=== PATIENT | male | born 1955 | race Caucasian/White ===

== ENCOUNTER 2019-06-08 18:24 | Inpatient (IN) ==
[2019-06-08] MEDS ORDERED: ASPIRIN 81 MG CHEW PO STA (18:39)
[2019-06-08] MEDS ORDERED: SODIUM CHLORIDE 0.9% 1000ML 1,000 ML IV ONE ×2 (18:41→19:48)
[2019-06-08] MEDS ORDERED: fentaNYL citrate 100 MCG/2 ML VIAL IV STA (18:41)
--- NOTE | 2019-06-08 18:51 | XRay Report ---
XR chest 1V portable CLINICAL HISTORY: epigatric pain pain COMPARISON STUDY: 09/16/2015 FINDINGS: Poor inspiratory volumes. Mild cardiac enlargement. Infiltrate left base. Lungs otherwise a ppear clear. IMPRESSION: 1. Infiltrate left base. 2. Mild cardiomegaly. The above report was generated using voice recognition software. It may contain grammatical, syntax or spelling errors. Electronically signed by: Hugh Silva M.D. 06/08/2019 6:49 PM
[2019-06-08 18:53] LABS: Basophils # (auto) 0.03 K/uL (0-0.2); Basophils % (auto) 0.4 %; Eosinophils # (auto) 0.41 K/uL (0-0.5); Eosinophils % (auto) 4.8 %; Hematocrit (blood only) 44.6 % (42-52); Hemoglobin 15.5 g/dL (14.0-18.0); Immature Granulocytes # (auto) 0.01 K/uL (0.00-0.02); Immature Granulocytes % (auto) 0.1 %; Lymphocytes # (auto) 2.17 K/uL (1.2-3.4); Lymphocytes % (auto) 25.6 %; Mean Corpuscular Hemoglobin 30.2 pg (25-34); Mean Corpuscular Hgb Conc 34.8 g/dL (32-36); Mean Corpuscular Volume 86.9 fL (80-100); Mean Platelet Volume 9.9 fL (7.4-10.4); Monocytes # (auto) 1.02 K/uL (0.11-0.59); Neutrophils # (auto) 4.85 K/uL (1.4-6.5); Neutrophils % (auto) 57.1 %; Platelet Count 249 K/uL (130-400); RDW Coefficient of Variation 13.7 % (11.5-14.5); RDW Standard Deviation 43.3 fL (36.4-46.3); Red Blood Count 5.13 M/uL (4.7-6.1); White Blood Count 8.49 K/uL (4.8-10.8)
[2019-06-08] MEDS ORDERED: OPTIRAY 320 125ml IV PRN (18:54)
[2019-06-08 18:57] LABS: iSTAT Creatinine 1.1 mg/dl (0.6-1.3); iSTAT Hemoglobin 15.3 g/dl (14.0-18.0); iSTAT Ionized Calcium 1.18 mmol/l (1.12-1.32); iSTAT Potassium 2.7 mEq/L (3.3-5.0)
[2019-06-08 19:03] LABS: INR 1.1 (0.9-1.1); Partial Thromboplastin Ratio 0.8; Partial Thromboplastin Time 20.4 Seconds (21.0-31.0); Prothrombin Time 10.9 Seconds (9.0-12.0)
--- NOTE | 2019-06-08 19:11 | CT Scan Report ---
CT angio chest dissec wo/w con CT DOSE: 3294.83 mGy.cm HISTORY: Pain epigastric pain TECHNIQUE: Multiaxial CT images of the chest, abdomen, and pelvis were performed both before and afte r the intravenous administration of contrast to evaluate the aorta. Maximal intensity projection imag es were also obtained. A dose lowering technique was utilized adhering to the principles of ALARA. COMPARISON STUDY: None. FINDINGS: Generalized atherosclerotic change of the thoracic aorta. No evidence for aneurysm or disse ction. Moderate cardiomegaly. No significant mediastinal or hilar adenopathy. Lungs are generally clear. Minimal dependent atelectatic change. IMPRESSION: 1. No evidence for aneurysm or dissection. 2. Lungs are grossly clear. 3. Pulmonary vasculature enhances appropriately with no significant filling defects. The above report was generated using voice recognition software. It may contain grammatical, syntax or spelling errors. Electronically signed by: Hugh Silva M.D. 06/08/2019 7:09 PM
[2019-06-08 19:13] LABS: Alanine Aminotransferase 468 U/L (12-78); Albumin Level 4.1 gm/dl (3.4-5.0); Aspartate Aminotransferase 380 U/L (15-37); BUN Creatinine Ratio 11.6 (10-20); Blood Urea Nitrogen 13 mg/dl (7-18); Calcium 9.8 mg/dl (8.5-10.1); Carbon Dioxide 30 mmol/L (21-32); Chloride 103 mmol/L (98-107); Est GFR (African American) 77.5; Est GFR (Non-African American) 66.9; Glucose 114 mg/dl (70-99); Potassium 2.7 mmol/L (3.5-5.1); Sodium 140 mmol/L (136-145)
--- NOTE | 2019-06-08 19:15 | CT Scan Report ---
Study: CT angiogram abdomen and pelvis HISTORY: Pain. COMPARISON: None. FINDINGS: Moderate atherosclerotic change of the abdominal aorta as well as pelvic arterial vasculatu re. Mild scattered plaque formation. No significant stenosis or aneurysm. No evidence for dissection. Liver spleen and pancreas are unremarkable. Nonobstructive bowel pattern. Normal appendix. Bladder is midline. IMPRESSION: 1. Mild atherosclerotic change of the abdominal and pelvic arterial vasculature. 2. No evidence for aneurysm or dissection. 3. Nonobstructive bowel pattern. 4. Normal appendix. 5. Mild to moderate gastric distention Electronically signed by: Hugh Silva M.D. 06/08/2019 7:13 PM
[2019-06-08 19:36] LABS: Albumin Globulin Ratio 1.2 (0.9-2); Alkaline Phosphatase 161 U/L (45-117); Bilirubin,Total 1.6 mg/dl (0.2-1); Globulin 3.3 gm/dl (2.5-4.0); Lipase 27935 U/L (73-393); Total Protein 7.4 gm/dl (6.4-8.2); Troponin I < 0.015 ng/ml (0-0.045)
[2019-06-08] MEDS ORDERED: POTASSIUM CHLORIDE / WTR 10 MEQ/100 ML PLCT IV ONE (19:48)
[2019-06-08] MEDS ORDERED: POTASSIUM CHLORIDE 20 MEQ TABCR PO STA (21:20)
[2019-06-08] MEDS ORDERED: ACETAMINOPHEN 325 MG TAB PO PRN (21:20)
[2019-06-08] MEDS ORDERED: ONDANSETRON INJ 2 MG/ML 2 ML VIAL IV PRN (21:20)
[2019-06-08] MEDS ORDERED: HYDROmorphone INJ 0.5 MG/0.5 ML SYR IV PRN (21:20)
[2019-06-08] MEDS: POTASSIUM CHLORIDE / WTR 10 MEQ/100 ML PLCT IV SCH ×2 (21:55→22:54)
--- NOTE | 2019-06-08 22:15 | Emergency Department Note ---
Entered by Roopa Garcia acting as a scribe for Ermias Mcmahan M.D. History of Present Illness General Chief complaint: Abdominal Pain Stated complaint: STOMACH PAINS,SWEATING Time Seen by Provider: 06/08/19 18:31 Source: patient History of Present Illness Onset (ago): day(s) 4 Location: abdomen (upper) Pain Consistency: + intermittent (for the past few days) and + other (worsened today) Maximum Pain Intensity: 7 Quality: + sharp and + other (upper abdominal pain) Exacerbated By: + eating and + other (inspiration) Associated symptoms: + other (Positive diaphoresis. 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 He reports on Thanksgiving, he had some upper abdominal discomfort, burping, and diaphoresis but thought it was from eating too much food. He states for the past few days, his pain has been intermittent and sharp but it worsened today. His pain is worse with inspiration and eating. He denies any nausea, vomiting, fevers, diarrhea, radiation of his pain, recent falls, recent travel. The patient has no prior hx of heart burn or acid reflux. He does not have a family hx of gall bladder or heart problems. His PCP is Dr. Beard, Family Medicine. Home Medications Home Medications Medication Instructions Recorded Confirmed Type atorvastatin 40 mg PO DAILY 06/08/19 06/08/19 History benazepril-hydrochlorothiazide 1 tab PO DAILY 06/08/19 06/08/19 History metoprolol succinate 100 mg PO DAILY 06/08/19 06/08/19 History Allergies Allergy/AdvReac Type Severity Reaction Status Date / Time naproxen Allergy Loss of Verified 06/08/19 21:44 Appetite Past Med/Surg History Medical History Pneumonia involving right lung (Acute) Surgical History No pertinent past surgical history Family History Other No pertinent family history in first degree relatives Social History Preferred Language: Kazakh Communication Ability: Effective Beliefs That Will Affect Care: None Current Living Situation: Spouse Other Information That Helps Us Care for You: No Feels Safe at Home: Yes Safety Concerns: Feels Safe At This Time Smoking Status: Never smoker Do You Dip or Chew Tobacco: No ; Hx Alcohol Use: Yes Alcohol type: beer Hx Substance Use: No Review of Systems See HPI for pertinent positives & negatives. and A total of 10 systems reviewed and were otherwise negative Physical Exam Vital Signs Vital Signs - 24 hr 06/08/19 18:26 06/08/19 18:34 06/08/19 19:04 Pulse Rate 58 L 61 Pulse Rate from SpO2 Sensor 62 Respiratory Rate 20 15 Respiratory Effort / Characteristics Non-Labored Respiratory Depth Normal Blood Pressure 96/57 L 107/75 129/75 Blood Pressure Mean 70 80 100 Pulse Oximetry 93 97 Oxygen Delivery Method Room Air Room Air Sepsis Recent Fever Within 48 Hours No Sepsis Action Taken by Nursing No Action Required 06/08/19 19:50 06/08/19 20:12 06/08/19 20:13 Pulse Rate 77 65 70 Pulse Rate from SpO2 Sensor 71 66 71 Respiratory Rate 22 24 17 Respiratory Effort / Characteristics Respiratory Depth Blood Pressure 128/67 115/65 Blood Pressure Mean 92 75 Pulse Oximetry 93 96 95 Oxygen Delivery Method Sepsis Recent Fever Within 48 Hours Sepsis Action Taken by Nursing GENERAL: Awake, alert, uncomfortable-appearing, in no distress. Diaphoretic and pale. HENT: Normocephalic, atraumatic. EYES: Normal conjunctiva. Sclera non-icteric. NECK: Supple. No nuchal rigidity. RESPIRATORY: Clear to auscultation. Normal respiratory effort. CARDIAC: Normal rate. Normal rhythm. Pale. GI: Soft, non-distended. No rebound or guarding. No masses. Minimal to no epigastric pain. Negative [place] sign. RECTAL: Deferred. MUSCULOSKELETAL: Atraumatic. Chest examination reveals no tenderness. LOWER EXTREMITIES: Calves are equal size bilaterally and non-tender. No edema NEURO: Normal sensorium. No sensory or motor deficits noted. No facial droop. SKIN: Warm. No rash or jaundice noted. Course Course 183: Past medical records reviewed. The patient was evaluated in room B8. A complete history and physical exam was performed. 1954: I updated the patient about his results at this time. 1954: Discussed the patient's case with Dr. Lin, [facility] Hospitalist. The patient will be evaluated for further management. Administered Medications Potassium Chloride (K Jonathon / Wtr) 10 meq in 100 mls @ 100 mls/hr IV Q1H SHAGGY Stop: 06/09/19 00:19 Last Admin: 06/08/19 21:55 Dose: 100 mls/hr Documented by: [id number] Discontinued Medications Aspirin (Aspirin Chew) 324 mg PO NOW STA Stop: 06/08/19 18:40 Last Admin: 06/08/19 19:18 Dose: 324 mg Documented by: [id number] Fentanyl Citrate (Fentanyl Citrate) 50 mcg IV NOW STA Stop: 06/08/19 18:42 Last Admin: 06/08/19 20:55 Dose: Not Given Documented by: [id number] Sodium Chloride (Nss 1000ml) 1,000 mls @ 999 mls/hr IV .Q1H1M ONE Stop: 06/08/19 19:41 Last Infusion: 06/08/19 20:13 Dose: 0 mls/hr Documented by: [id number] Admin: 06/08/19 19:20 Dose: 999 mls/hr Documented by: [id number] Sodium Chloride (Nss 1000ml) 1,000 mls @ 999 mls/hr IV .Q1H1M ONE Stop: 06/08/19 20:48 Last Infusion: 06/08/19 21:42 Dose: 0 mls/hr Documented by: [id number] Admin: 06/08/19 20:13 Dose: 999 mls/hr Documented by: [id number] Potassium Chloride (K Jonathon / Wtr) 10 meq in 100 mls @ 100 mls/hr IV ONE ONE Stop: 06/08/19 20:47 Last Infusion: 06/08/19 21:15 Dose: 0 mls/hr Documented by: [id number] Admin: 06/08/19 20:12 Dose: 100 mls/hr Documented by: [id number] Ioversol (Optiray 320 125ml) 116 ml IV ONCE PRN PRN Reason: Interaction Checking Stop: 06/12/19 18:53 Last Admin: 06/08/19 18:58 Dose: 116 ml Documented by: [id number] Potassium Chloride (Klor-Con M20) 60 meq PO NOW STA Stop: 06/08/19 21:21 Last Admin: 06/08/19 21:54 Dose: 60 meq Documented by: [id number] Medical Decision Making Differential Diagnosis Differential diagnosis: Etiologies such as appendicitis, diverticulitis, PUD, biliary pathology, UTI, pancreatitis, obstruction, mesenteric ischemia, aortic pathology, infections, inflammatory bowel disease, renal colic, as well as others were entertained. Medical Records Attestation: I reviewed the patient's medical records. Home Medications Current Medication List: was personally reviewed by me Laboratory Data Attestation: I reviewed the patient's lab results. Result diagrams: 06/08/19 18:39 06/08/19 18:39 Lab Results 06/08/19 06/08/19 06/08/19 Range/Units 18:39 18:39 18:39 WBC 8.49 (4.8-10.8) K/uL RBC 5.13 (4.7-6.1) M/uL Hgb 15.5 (14.0-18.0) g/dL POC Hgb (14.0-18.0) g/dl Hct 44.6 (42-52) % POC Hct (42-52) % MCV 86.9 (80-100) fL MCH 30.2 (25-34) pg MCHC 34.8 (32-36) g/dL RDW Std Deviation 43.3 (36.4-46.3) fL RDW Coeff of Dayron 13.7 (11.5-14.5) % Plt Count 249 (130-400) K/uL MPV 9.9 (7.4-10.4) fL Immature Gran % (Auto) 0.1 % Neut % (Auto) 57.1 % Lymph % (Auto) 25.6 % Kingfisher % (Auto) 12.0 % Eos % (Auto) 4.8 % Baso % (Auto) 0.4 % Immature Gran # (Auto) 0.01 (0.00-0.02) K/uL Neut # (Auto) 4.85 (1.4-6.5) K/uL Lymph # (Auto) 2.17 (1.2-3.4) K/uL [place] # (Auto) 1.02 H (0.11-0.59) K/uL Eos # (Auto) 0.41 (0-0.5) K/uL Baso # (Auto) 0.03 (0-0.2) K/uL PT 10.9 (9.0-12.0) Seconds INR 1.1 (0.9-1.1) APTT 20.4 L (21.0-31.0) Seconds PTT Ratio 0.8 POC Sodium (135-144) mEq/L Sodium 140 (136-145) mmol/L POC Potassium (3.3-5.0) mEq/L Potassium 2.7 L (3.5-5.1) mmol/L POC Chloride (101-112) mEq/L Chloride 103 (98-107) mmol/L Carbon Dioxide 30 (21-32) mmol/L POC Total CO2 (24-31) mEq/l Anion Gap 7.0 (3-11) POC Anion Gap (16-25) mmol/L POC BUN (7-18) mg/dl BUN 13 (7-18) mg/dl Creatinine 1.15 (0.6-1.4) mg/dl POC Creatinine (0.6-1.3) mg/dl Est Cr Clr Drug Dosing 77.0 ml/min Est GFR ( Amer) 77.5 Est GFR (Non-Af Amer) 66.9 BUN/Creatinine Ratio 11.6 (10-20) Glucose 114 H (70-99) mg/dl POC Glucose (other) (70-99) mg/dl Calcium 9.8 (8.5-10.1) mg/dl POC Ioniz Calcium Nick (1.12-1.32) mmol/l Total Bilirubin 1.6 H (0.2-1) mg/dl AST 380 H (15-37) U/L ALT 468 H (12-78) U/L Alkaline Phosphatase 161 H (45-117) U/L POC Troponin I (0-0.045) ng/ml Troponin I < 0.015 (0-0.045) ng/ml Total Protein 7.4 (6.4-8.2) gm/dl Albumin 4.1 (3.4-5.0) gm/dl Globulin 3.3 (2.5-4.0) gm/dl Albumin/Globulin Ratio 1.2 (0.9-2) Triglycerides (0-150) mg/dl Lipase 21528 H (73-393) U/L 06/08/19 06/08/19 06/08/19 Range/Units 18:39 18:42 18:45 WBC (4.8-10.8) K/uL RBC (4.7-6.1) M/uL Hgb (14.0-18.0) g/dL POC Hgb 15.3 (14.0-18.0) g/dl Hct (42-52) % POC Hct 45 (42-52) % MCV (80-100) fL MCH (25-34) pg MCHC (32-36) g/dL RDW Std Deviation (36.4-46.3) fL RDW Coeff of Dayron (11.5-14.5) % Plt Count (130-400) K/uL MPV (7.4-10.4) fL Immature Gran % (Auto) % Neut % (Auto) % Lymph % (Auto) % [place] % (Auto) % Eos % (Auto) % Baso % (Auto) % Immature Gran # (Auto) (0.00-0.02) K/uL Neut # (Auto) (1.4-6.5) K/uL Lymph # (Auto) (1.2-3.4) K/uL [place] # (Auto) (0.11-0.59) K/uL Eos # (Auto) (0-0.5) K/uL Baso # (Auto) (0-0.2) K/uL PT (9.0-12.0) Seconds INR (0.9-1.1) APTT (21.0-31.0) Seconds PTT Ratio POC Sodium 141 (135-144) mEq/L Sodium (136-145) mmol/L POC Potassium 2.7 L (3.3-5.0) mEq/L Potassium (3.5-5.1) mmol/L POC Chloride 99 L (101-112) mEq/L Chloride (98-107) mmol/L Carbon Dioxide (21-32) mmol/L POC Total CO2 30 (24-31) mEq/l Anion Gap (3-11) POC Anion Gap 14.0 L (16-25) mmol/L POC BUN 13 (7-18) mg/dl BUN (7-18) mg/dl Creatinine (0.6-1.4) mg/dl POC Creatinine 1.1 (0.6-1.3) mg/dl Est Cr Clr Drug Dosing ml/min Est GFR ( Amer) Est GFR (Non-Af Amer) BUN/Creatinine Ratio (10-20) Glucose (70-99) mg/dl POC Glucose (other) 112 H (70-99) mg/dl Calcium (8.5-10.1) mg/dl POC Ioniz Calcium Nick 1.18 (1.12-1.32) mmol/l Total Bilirubin (0.2-1) mg/dl AST (15-37) U/L ALT (12-78) U/L Alkaline Phosphatase (45-117) U/L POC Troponin I < 0.03 (0-0.045) ng/ml Troponin I (0-0.045) ng/ml Total Protein (6.4-8.2) gm/dl Albumin (3.4-5.0) gm/dl Globulin (2.5-4.0) gm/dl Albumin/Globulin Ratio (0.9-2) Triglycerides 171 H (0-150) mg/dl Lipase (73-393) U/L Imaging Data Radiologist's Impression: Radiology results as stated below per my review and the radiologist's interpretation: XR chest 1V portable CLINICAL HISTORY: epigatric pain pain COMPARISON STUDY: 09/16/2015 FINDINGS: Poor inspiratory volumes. Mild cardiac enlargement. Infiltrate left base. Lungs otherwise appear clear. IMPRESSION: 1. Infiltrate left base. 2. Mild cardiomegaly. The above report was generated using voice recognition software. It may contain grammatical, syntax or spelling errors. Electronically signed by: Hugh Silva M.D. 06/08/2019 6:[address] angio chest dissec wo/w con CT DOSE: 3294.83 mGy.cm HISTORY: Pain epigastric pain TECHNIQUE: Multiaxial CT images of the chest, abdomen, and pelvis were performed both before and after the intravenous administration of contrast to evaluate the aorta. Maximal intensity projection images were also obtained. A dose lowering technique was utilized adhering to the principles of ALARA. COMPARISON STUDY: None. FINDINGS: Generalized atherosclerotic change of the thoracic aorta. No evidence for aneurysm or dissection. Moderate cardiomegaly. No significant mediastinal or hilar adenopathy. Lungs are generally clear. Minimal dependent atelectatic change. IMPRESSION: 1. No evidence for aneurysm or dissection. 2. Lungs are grossly clear. 3. Pulmonary vasculature enhances appropriately with no significant filling defects. The above report was generated using voice recognition software. It may contain grammatical, syntax or spelling errors. Electronically signed by: Hugh Silva M.D. 06/08/2019 7:09 PM Study: CT angiogram abdomen and pelvis HISTORY: Pain. COMPARISON: None. FINDINGS: Moderate atherosclerotic change of the abdominal aorta as well as pelvic arterial vasculature. Mild scattered plaque formation. No significant stenosis or aneurysm. No evidence for dissection. Liver spleen and pancreas are unremarkable. Nonobstructive bowel pattern. Normal appendix. Bladder is midline. IMPRESSION: 1. Mild atherosclerotic change of the abdominal and pelvic arterial vasculature. 2. No evidence for aneurysm or dissection. 3. Nonobstructive bowel pattern. 4. Normal appendix. 5. Mild to moderate gastric distention Electronically signed by: Hugh Silva M.D. 06/08/2019 7:13 PM ECG Data Attestation: I personally reviewed and interpreted this ECG as follows: Indication: + abdominal pain Rate (beats per minute): 54 Rhythm: + sinus bradycardia ECG ST segments: no ST depression and no ST elevation ECG Findings: + Other (normal QTC); no PVCs Comparison ECG Date: from (09/16/15) Change: the following changes noted (Appears unchanged with nonspecific T wave changes ) Blood Pressure Blood Pressure Findings: Normal blood pressure Blood Pressure Disposition: further management by hospitalist HUDSON Calero Patient is a 63-year-old gentleman history of hyperlipidemia hypertension presenting today with a complaint of 5 days of intermittent epigastric discomfort. Significant worsening this evening. Does not really report any exertional symptoms. No radiation. Midepigastrium just below the xiphoid process. Fairly severe. Appears diaphoretic and somewhat miranda upon arrival. EKG here shows no acute ST elevation in comparison to previous from 2016 without significant change. Patient was given aspirin here. Given fentanyl. Not having significant abdominal tenderness. Denies any constipation or diarrhea. Denies significant nausea. Denies difficulty breathing. No trauma. No recent travel reported. No fever reported. No history of similar. Has taken Tums with minimal improvement in the past but not this evening. CT scan of the chest abdomen pelvis was obtained to evaluate for possible intrathoracic and abdominal pathology including possible aortic dissection. EKG again was already completed without significant initial findings. Troponins were completed. Initial chest x-ray with ?infiltrate in the left base. However the patient again denies any shortness of breath symptoms. No leukocytosis no anemia noted on initial labs. Kidney function without significant abnormality. Some hypokalemia is noted. Initial troponin reports negative. Patient's AST and ALT are elevated. CT of the chest does not show any evidence of dissection the lungs appear clear there is no evidence of significant PE noted. CT of the abdomen pelvis showed no dissection on nonobstructive bowel pattern normal appendix and mild to moderate gastric distention. Patient vomited here and had significant relief of sy mptomatology.Lipase is elevated to greater than 27,000. This likely etiology of symptoms. Slight bilirubin elevation but no evidence on the CT of biliary ductal dilation. Ultrasound will be ordered for the upper quadrant but the patient require admission to the hospital further evaluation and treatment of his pancreatitis. The patient was updated. [facility] hospitalist contacted. Patient declined additional pain medication at this time. Triglycerides not significantly elevated. No alcohol abuse history reported. Impression & Plan Acute pancreatitis, Hypokalemia Discharge Plan Visit Data *Final* Discharge Date/Time: 06/08/19 21:02 Chief Complaint: Abdominal Pain Stated Complaint: STOMACH PAINS,SWEATING ED Provider: Ermias Mcmahan Discharge Problem: Acute pancreatitis, Hypokalemia Patient Disposition: Admitted As Inpatient Discharge Instructions Interventions: ED Discharge Assessment Last Done: 06/08/19 21:02 Discharge Problem: Acute pancreatitis Qualifiers: Pancreatitis type: unspecified pancreatitis type Acute pancreatitis complication: unspecified Qualified Code(s): K85.90 - Acute pancreatitis without necrosis or infection, unspecified The artiibe's documentation has been prepared under my direction and personally reviewed by me in its entirety. I confirm that the note above accurately reflects all work, treatment, procedures, and medical decision making performed by me.
--- NOTE | 2019-06-08 22:43 | History and Physical Report ---
DATE OF ADMISSION: 06/08/2019 CHIEF COMPLAINT: Abdominal pain. HISTORY OF PRESENT ILLNESS: A 63-year-old male with past medical history significant for hyperlipidemia, allergic rhinitis, sleep apnea, hypertension, arthritis of both knees, obesity, presents with severe abdominal pain. The patient says started on , it got progressively worsened today, about 7/10 in severity in the epigastric region, sharp pains, no radiation, associated with nauseous and vomited once. Normal bowel movements, no blood in the stools or black stools. Normal bladder movements. No hematuria or burning micturition. No fever, no chills, no cough, no chest pain, no shortness of breath, no headache, no dizziness, no blurred vision, no earache, no runny nose, no sore throat, no difficulty swallowing. Otherwise, appetite is okay. Sleeps okay. No night sweats. No recent weight gain, weight loss. Ambulates okay. No swelling in the legs, no rash. Currently resting comfortably and hemodynamically stable. With pain medication, the pain is improved. ALLERGIES: NAPROXEN. PAST MEDICAL HISTORY: As mentioned above. PAST SURGICAL HISTORY: Colonoscopy with biopsy, tonsillectomy. MEDICATIONS: The patient is on atorvastatin 40 mg p.o. daily, benazepril/hydrochlorothiazide 20/25 mg p.o. daily, Toprol-XL 100 mg p.o. daily, multivitamins daily. FAMILY HISTORY: Significant for: Father had OH at age of 81. Mother has dementia, breast cancer at age 79. Maternal aunt has breast cancer at age of 81. Maternal grandmother had breast cancer. Maternal grandmother has dementia. Uncle has dementia. SOCIAL HISTORY: Single. No smoking. Alcohol occasional. No drug use. REVIEW OF SYMPTOMS: As per HPI. Rest of review of systems is negative. PHYSICAL EXAMINATION: GENERAL: The patient is obese, not in acute distress. VITAL SIGNS: Temperature afebrile, pulse 66, respiratory rate 24, blood pressure 115/65, oxygen 96% on room air. HEENT: No pallor, no icterus. Pupils equal, round, reactive to light. NECK: No JVD, no neck masses, no carotid bruit. CARDIOVASCULAR: S1 and S2 heard. Regular rate and rhythm, no murmur, no gallop. RESPIRATORY SYSTEM: Normal AP diameter. No accessory muscle use. No wheezing, no crackles. ABDOMEN: Soft, bowel sounds present. Mild epigastric tenderness. No guarding, no rigidity. CENTRAL NERVOUS SYSTEM: Cranial nerves II-XII grossly intact, nonfocal. EXTREMITIES: No edema, no erythema. LABORATORY DATA: WBC 8.4, hemoglobin 15.5, hematocrit 44.6, platelets 249. PT 10.9, INR 1.1, APTT 20.4. Sodium 140, potassium 2.7, chloride 103, bicarbonate 30, BUN 13, creatinine 1.1, serum glucose 114, calcium 9.8, total bilirubin 1.6, AST 380, ALT 468, alkaline phosphatase 161. Troponin I less than 0.015. Triglycerides 171, lipase 27,900. IMAGING DATA: CTA of the abdomen and pelvis with mild to moderate gaseous distension unremarkable. Chest x-ray, infiltrate left base, mild cardiomegaly. EKG: Sinus bradycardia, at the rate of 54, left anterior fascicular block, left ventricular hypertrophy with QRS widening. No significant change from previous EKG. ASSESSMENT AND PLAN: This is a 63-year-old male who presents with abdominal pain, found to have acute pancreatitis. 1. Abdominal pain, acute pancreatitis. The patient denies any excessive alcohol intake. CTA of the abdomen and pelvis was okay. We will follow the gallbladder ultrasound.Triglycerides levels ok. Elevated LFTs. Follow the repeat LFTs and lipase in a.m. Keep him n.p.o., aggressive IV fluids with Ringer's lactate 200 mL per hour, IV antiemetics, and IV pain meds p.r.n. and consult GI in a.m.Etiology unclear. Meds? 3. Hypokalemia. Will replace. Follow the repeat labs. 5. Hypertension. Continue his home medications, benazepril/hydrochlorothiazide and Toprol xl, monitor the blood pressure. 6. Hyperlipidemia. Continue statin. 7. Sleep apnea, on CPAP at bedtime. 8. Chest x-ray, infiltrate, left base, but there is no cough, no fever currently, no leukocytosis. We will monitor. 9. Deep venous thrombosis prophylaxis, sequential compression devices. 10. Disposition: Monitor on medical floor. Expect to discharge home and follow with family doctor. Level 1 full code. MTDD
[2019-06-08] MEDS: LACTATED RINGER'S 1,000 ML IV SCH (22:48)
[2019-06-09] MEDS: POTASSIUM CHLORIDE / WTR 10 MEQ/100 ML PLCT IV SCH (00:17)
[2019-06-09] MEDS: LACTATED RINGER'S 1,000 ML IV SCH ×5 (03:59→18:18)
[2019-06-09 05:46] LABS: Basophils # (auto) 0.02 K/uL (0-0.2); Basophils % (auto) 0.3 %; Eosinophils # (auto) 0.29 K/uL (0-0.5); Eosinophils % (auto) 4.5 %; Hematocrit (blood only) 40.5 % (42-52); Hemoglobin 13.3 g/dL (14.0-18.0); Immature Granulocytes # (auto) 0.01 K/uL (0.00-0.02); Immature Granulocytes % (auto) 0.2 %; Lymphocytes # (auto) 1.33 K/uL (1.2-3.4); Lymphocytes % (auto) 20.5 %; Mean Corpuscular Hgb Conc 32.8 g/dL (32-36); Mean Corpuscular Volume 88.4 fL (80-100); Mean Platelet Volume 10.5 fL (7.4-10.4); Monocytes % (auto) 13.9 %; Neutrophils # (auto) 3.94 K/uL (1.4-6.5); Neutrophils % (auto) 60.6 %; Platelet Count 200 K/uL (130-400); RDW Coefficient of Variation 13.9 % (11.5-14.5); RDW Standard Deviation 45.6 fL (36.4-46.3); Red Blood Count 4.58 M/uL (4.7-6.1); White Blood Count 6.49 K/uL (4.8-10.8)
[2019-06-09 06:25] LABS: BUN Creatinine Ratio 14.1 (10-20); Calcium 8.7 mg/dl (8.5-10.1); Creatinine Clr Calc Pharmacy 91.6 ml/min; Est GFR (African American) 96.4; Est GFR (Non-African American) 83.2; Magnesium 2.2 mg/dl (1.8-2.4); Potassium 3.8 mmol/L (3.5-5.1)
[2019-06-09 06:36] LABS: Albumin Level 3.3 gm/dl (3.4-5.0); Bilirubin Direct 0.4 mg/dl (0-0.2); Bilirubin,Total 1.2 mg/dl (0.2-1)
--- NOTE | 2019-06-09 07:13 | Ultrasound Report ---
ABDOMINAL ULTRASOUND, RIGHT UPPER QUADRANT HISTORY: epigastric pain, elevated LFTs, pancreatitis. COMPARISON: Abdomen and pelvis CT 06/08/2019. FINDINGS: Pancreas: The pancreatic head and tail are obscured by overlying bowel gas. The remaining portions of the pancreas are within normal limits. Liver: The liver is echogenic consistent with fatty change. 17 cm in length. Gallbladder: No gallstones. Mild gallbladder wall thickening measuring 4 mm in thickness. The gallbla dder appears slightly contracted. No pericholecystic fluid. Negative sonographic Lopez sign. CBD: 4 mm. Right kidney: No hydronephrosis. IMPRESSION: 1. Mild gallbladder wall thickening. This could be due to the slightly contracted appearance. There a re no gallstones. Clinical correlation recommended. 2. Hepatic steatosis. Electronically signed by: Abdirizak Boyce M.D. 06/09/2019 7:12 AM
[2019-06-09] MEDS: hydroCHLOROthiazide 25 MG TAB PO SCH (08:19)
[2019-06-09] MEDS: BENAZEPRIL HCL 10 MG TAB PO SCH (08:19)
[2019-06-09] MEDS ORDERED: ATORVASTATIN 40 MG TAB PO SCH (09:00)
[2019-06-09] MEDS ORDERED: NON-FORMULARY MEDICATION (Benazepril-Hydrochlorothiazide 1 TAB) PO SCH (09:00)
[2019-06-09] MEDS ORDERED: METOPROLOL SUCC 50MG EXT REL TAB PO SCH ×2 (09:00→21:00)
--- NOTE | 2019-06-09 10:41 | Gastrointestinal Consultation ---
Date of Consultation June 09, 2019 Assessment & Plan (1) Acute pancreatitis: Pt is a 63 y/o male admitted with pancreatitis. ? etiology: wonder if it's ETOH related vs biliary obstruction given persistently elevated LFTs including Tbili & alk phos though no signs of gallstones or dilated CBD. - Check acute hepatitis panel and obtain MRCP - Continue LR IVF - Ok for CL diet later today after MRCP obtained. - Symptomatic management for pain/nausea control otherwise - Will plan for outpt EUS eval in 4-6 week's time - Avoid ETOH, stay on low fat diet Supervising Physician Co-Signing Physician Notes I have seen and examined the patient. PE - well nourished male in nad, HEENT - perrla, no scleral icterus, pulm- ctab, CV- rrr no mrg, Abd - obese soft nt nd +bs, skin- no rashes, Neuro- cn's 2-12 intact Labs reviewed- ast/alt elevation, TB less than 2, Abd imaging reviewed- gb thickening, non dilated cbd Pancreatitis- improving on IV fluids, MRCP today, agree with further plan of care as per Carolyn's assessment plan. Outpatient EUS in 6-8 weeks. History of Present Illness Reason for Consultation: Pancreatitis Requesting Physician: Dr. Nico James Attending Physician: Dr. Dori Green History of Present Illness Pt is a 63 y/o male who was admitted last night for c/o epigastric abd pain, n/v. After Thanksgiving dinner does feel upper abd discomfort, heartburn. These resolved after a few days. Last night he was eating a quarter pounder burger and suddenly felt epigastric pain, had nausea, vomited in ED. He denies fever, chills, bowel habit changes. Last BM this morning. Upon eval, noted to have hypokalemia (corrected), LFTs & lipase were elevated: Tbili 1.2, AST 428, ALT 495, AP 170, Lipase >29K. TG level 171. Chest CTA and xray unremarkable. Gallbladder us, CTA abd/pelvis w/o gallstones, CBD 4mm, liver, spleen, pancreas unremarkable. He denies tobacco, drinks up to 15 beers a week. He denies any illicit drugs. Denies new meds in last 3 months No family hx of autoimmune dz or pancreatitis. He is currently feeling better, no longer having abd pain since last night. No n/v. Allergies Allergy/AdvReac Type Severity Reaction Status Date / Time naproxen Allergy Loss of Verified 06/08/19 21:44 Appetite Home Medications Home Medications Medication Instructions Recorded Confirmed Type atorvastatin 40 mg PO DAILY 06/08/19 06/08/19 History benazepril-hydrochlorothiazide 1 tab PO DAILY 06/08/19 06/08/19 History metoprolol succinate 100 mg PO DAILY 06/08/19 06/08/19 History Patient History Medical History Pneumonia involving right lung (Acute) Surgical History No pertinent past surgical history Family History Other No pertinent family history in first degree relatives Social History Preferred Language: Indian Communication Ability: Effective Beliefs That Will Affect Care: None Current Living Situation: Spouse Other Information That Helps Us Care for You: No Feels Safe at Home: Yes Safety Concerns: Feels Safe At This Time Smoking Status: Never smoker Do You Dip or Chew Tobacco: No ; Hx Alcohol Use: Yes Alcohol type: beer Hx Substance Use: No Review of Systems Review of Systems: All systems reviewed & are unremarkable except as noted in HPI & below Physical Exam Constitutional: WD/WN, vitals as above well groomed, cooperative and comfortable Eyes: PERRL, conjunctivae normal, anicteric sclerae ENMT: external ear and nose normal, oropharynx normal Respiratory: normal respiratory effort, lungs clear to auscultation Cardiovascular: RRR, no murmur, no edema Gastrointestinal (Abdomen): normal bowel sounds, soft, nontender, no hepatosplenomegaly Skin: no rashes, warm and dry no jaundice Psychiatric: A+Ox3, euthymic affect Lymphatic: no lymphedema Results & Data Vital Signs (Past 12 Hours) Vital Signs Temp Pulse Resp BP Pulse Ox 06/09/19 07:38 36.7 C 52 L 18 137/81 94 06/08/19 22:42 36.7 C 55 L 16 125/75 97 (1) Acute pancreatitis Acute pancreatitis complication: unspecified Pancreatitis type: unspecified pancreatitis type Qualified Code(s): K85.90 - Acute pancreatitis without necrosis or infection, unspecified
[2019-06-09 11:44] LABS: Hepatitis B Surface Antigen Neg (Neg)
--- NOTE | 2019-06-09 11:46 | Hospitalist Progress Note ---
Date of Service June 09, 2019 Assessment & Plan (1) Acute pancreatitis: suspected acute pancreatitis elevated lipase Transaminitis Alcohol Use 63-year-old male who presents with abdominal pain, and because of elevated lipase of 28,000, he was suspected of having acute pancreatitis -He denies tobacco, drinks up to 15 beers a week. He denies any illicit drugs. Denies new meds in last 3 months No family hx of autoimmune dz or pancreatitis. -admission CT scan imaging does not comment on an acute pancreas pathology -gallbladder ultrasound with no acute features: Mild gallbladder wall thickening. This could be due to the slightly contracted appearance. There are no gallstones. Hepatic steatosis. -lipase downtrended to 6000 with IV fluids of lactated ringers -gastroenterology service recommended to continue IV fluids and check Check acute hepatitis panel and obtain MRCP - Patient may get Clear liquid diet after MRCP obtained. - Symptomatic management for pain/nausea control otherwise - plan for outpatient EUS eval in 4-6 week's time - Avoid ETOH, stay on low fat diet (2) Hypokalemia: Hypokalemia -admission serum potassium 2.7 -after repletion with supplements is 3.8 Hypertension -Continue his home medications, benazepril/hydrochlorothiazide and Toprol xl unless there are any concerns that these medications are contributory to abdominal pain Hyperlipidemia -Continue statin. Sleep apnea, and on CPAP at night -CPAP at bedtime. Abnormal Chest X ray -Chest x-ray shows left base infiltrate, but there is no cough, no fever, currently, no leukocytosis. We will monitor. Deep venous thrombosis prophylaxis, sequential compression devices. Full code Subjective Patient seen and examined at bedside. IV fluids running. Patient not in distress. abdomen is comfortable on palpation. Patient on room air. denies shortness of breath. no chest pain. no abdomen pain. no vomiting. urinating okay. had made bowel movement today Review of Systems Review of Systems: All systems reviewed & are unremarkable except as noted in HPI & below Physical Exam Constitutional: comfortable Eyes: PERRL, conjunctivae normal, anicteric sclerae EOM intact bilaterally ENMT: external ear and nose normal, oropharynx normal Neck: normal visual inspection Respiratory: normal respiratory effort, lungs clear to auscultation Gastrointestinal (Abdomen): normal bowel sounds, soft, nontender, no hepatosplenomegaly Musculoskeletal: Head/Neck/Chest: normocephalic and head atraumatic Neurologic: PERRL, EOMI, accommodation nl, no face palsy, no dysarthria CN's II-XI intact bilaterally Psychiatric: A+Ox3, euthymic affect Results & Data Vital Signs (Past 12 Hours) Vital Signs Temp Pulse Resp BP Pulse Ox 06/09/19 07:38 36.7 C 52 L 18 137/81 94 (1) Acute pancreatitis Acute pancreatitis complication: unspecified Pancreatitis type: unspecified pancreatitis type Qualified Code(s): K85.90 - Acute pancreatitis without necrosis or infection, unspecified
[2019-06-09 12:13] LABS: Hepatitis C IgG 13Yrs+Old_Rflx Neg (Neg)
--- NOTE | 2019-06-09 14:30 | Magnetic Resonance Report ---
MR MRCP HISTORY: pancreatitis, elevated LFTs, r/o biliary obstruction TECHNIQUE: MRCP of the abdomen was performed according to standard departmental protocol without the use of intravenous contrast. COMPARISON STUDY: Abdominal ultrasound 06/08/2019. Abdomen and pelvis CT 06/08/2019. FINDINGS: The lung bases are clear. No hepatic or splenic masses. The adrenal glands and pancreas dem onstrate a normal signal intensity. A few small bilateral T2 hyperintense lesions within the kidneys with the largest on the left measuring 1 cm. These favor cysts. No retroperitoneal lymphadenopathy. N o hydronephrosis. No gallbladder wall thickening. No gallstones. Trace pericholecystic fluid along th e hepatic surface is noted. The common bile duct and main pancreatic duct are normal in course and ca liber. No filling defects within the common bile duct to suggest a stone. No intrahepatic bile duct d ilatation. IMPRESSION: 1. Trace pericholecystic fluid along the hepatic surface. This favors underlying hepatic abnormality and could be seen with a low-grade hepatitis. Clinical correlation recommended. 2. No gallbladder wall thickening. No gallstones. 3. Normal common bile duct. Electronically signed by: Abdirizak Boyce M.D. 06/09/2019 2:29 PM
[2019-06-09] MEDS ORDERED: Nursing to Pharmacy Communication ONE (20:16)
[2019-06-10] MEDS: LACTATED RINGER'S 1,000 ML IV SCH (02:09)
[2019-06-10 05:56] LABS: Hepatitis A Antibody IgM NON-REACTIVE (NON-REACTIVE); Hepatitis B Core Antibody IgM NON-REACTIVE (NON-REACTIVE)
[2019-06-10 08:15] LABS: Basophils # (auto) 0.03 K/uL (0-0.2); Basophils % (auto) 0.7 %; Eosinophils # (auto) 0.28 K/uL (0-0.5); Eosinophils % (auto) 6.2 %; Hematocrit (blood only) 40.4 % (42-52); Hemoglobin 13.8 g/dL (14.0-18.0); Lymphocytes # (auto) 0.92 K/uL (1.2-3.4); Lymphocytes % (auto) 20.4 %; Mean Corpuscular Hemoglobin 30.2 pg (25-34); Mean Corpuscular Hgb Conc 34.2 g/dL (32-36); Mean Corpuscular Volume 88.4 fL (80-100); Mean Platelet Volume 10.1 fL (7.4-10.4); Monocytes % (auto) 13.3 %; Neutrophils # (auto) 2.67 K/uL (1.4-6.5); Neutrophils % (auto) 59.4 %; Platelet Count 180 K/uL (130-400); RDW Coefficient of Variation 13.9 % (11.5-14.5); RDW Standard Deviation 44.9 fL (36.4-46.3); Red Blood Count 4.57 M/uL (4.7-6.1)
[2019-06-10] MEDS: BENAZEPRIL HCL 10 MG TAB PO SCH (08:23)
[2019-06-10] MEDS: hydroCHLOROthiazide 25 MG TAB PO SCH (08:23)
[2019-06-10 08:40] LABS: Albumin Level 3.4 gm/dl (3.4-5.0); BUN Creatinine Ratio 11.8 (10-20); Calcium 9.6 mg/dl (8.5-10.1); Creatinine Clr Calc Pharmacy 90.6 ml/min; Est GFR (African American) 95.2; Est GFR (Non-African American) 82.2; Potassium 3.5 mmol/L (3.5-5.1)
[2019-06-10 08:43] LABS: Albumin Globulin Ratio 1.3 (0.9-2); Bilirubin,Total 1.1 mg/dl (0.2-1); Globulin 2.7 gm/dl (2.5-4.0); Total Protein 6.1 gm/dl (6.4-8.2)
--- NOTE | 2019-06-10 09:20 | Gastroenterology Progress Note ---
Date of Service June 10, 2019 Assessment & Plan (1) Acute pancreatitis: Pt is a 63 y/o male admitted with pancreatitis. ? etiology: wonder if it's ETOH related vs biliary obstruction given persistently elevated LFTs including Tbili & alk phos though no signs of gallstones or dilated CBD. MRCP obtained yesterday w/o signs of biliary obstruction or gallstones. Acute hepatitis panel negative, LFTs, Lipase trending down. He is clinically improving. - DC'd IVF - Diet advanced to low fat - GI to sign off; no contraindication for DC home from our standpoint. Will plan for outpt EUS eval in 4-6 week's time - Avoid ETOH, stay on low fat diet Supervising Physician Co-Signing Physician Notes I have seen and examined the patient and discussed the management with NATHANIEL Bañuelos. 63 yo male admitted with pancreatitis- etiology ? alcohol. Pain improved. PE: Gen- Well nourished male in nad, HEENT - perrla, CV- rrr no mrg, Pulm - Ctab, Abd - soft nt nd +bs Labs reviewed Ok to dc home from a gi perspective. Avoid ethanol and fatty foods. Ok to return to work from a gi perspective. Outpatient EUS in 6 weeks. Subjective Pt denies any issues overnight, no fever, chills, abd pain, n/v. Passing flatus and BM. Tolerating CL diet well. Review of Systems Review of Systems: All systems reviewed & are unremarkable except as noted in HPI & below Physical Exam Constitutional: WD/WN, vitals as above well groomed, cooperative and comfortable Eyes: PERRL, conjunctivae normal, anicteric sclerae ENMT: external ear and nose normal, oropharynx normal Respiratory: normal respiratory effort, lungs clear to auscultation Cardiovascular: RRR, no murmur, no edema Gastrointestinal (Abdomen): normal bowel sounds, soft, nontender, no hepatosplenomegaly Skin: no rashes, warm and dry no jaundice Psychiatric: A+Ox3, euthymic affect Lymphatic: no lymphedema Results & Data Vital Signs (Past 12 Hours) Vital Signs Temp Pulse Resp BP Pulse Ox 06/10/19 07:15 36.3 C L 56 L 16 127/74 96 06/09/19 23:05 36.7 C 56 L 16 137/78 96 (1) Acute pancreatitis Acute pancreatitis complication: unspecified Pancreatitis type: unspecified pancreatitis type Qualified Code(s): K85.90 - Acute pancreatitis without necrosis or infection, unspecified
--- NOTE | 2019-06-10 18:31 | Discharge Summary ---
Date of Service June 10, 2019 Admission HPI Per Admitting Provider CHIEF COMPLAINT: Abdominal pain. HISTORY OF PRESENT ILLNESS: A 63-year-old male with past medical history significant for hyperlipidemia, allergic rhinitis, sleep apnea, hypertension, arthritis of both knees, obesity, presents with severe abdominal pain. The patient says started on , it got progressively worsened today, about 7/10 in severity in the epigastric region, sharp pains, no radiation, associated with nauseous and vomited once. Normal bowel movements, no blood in the stools or black stools. Normal bladder movements. No hematuria or burning micturition. No fever, no chills, no cough, no chest pain, no shortness of breath, no headache, no dizziness, no blurred vision, no earache, no runny nose, no sore throat, no difficulty swallowing. Otherwise, appetite is okay. Sleeps okay. No night sweats. No recent weight gain, weight loss. Ambulates okay. No swelling in the legs, no rash. Currently resting comfortably and hemodynamically stable. With pain medication, the pain is improved. Admission Exam Per Admitting Provider GENERAL: The patient is obese, not in acute distress. VITAL SIGNS: Temperature afebrile, pulse 66, respiratory rate 24, blood pressure 115/65, oxygen 96% on room air. HEENT: No pallor, no icterus. Pupils equal, round, reactive to light. NECK: No JVD, no neck masses, no carotid bruit. CARDIOVASCULAR: S1 and S2 heard. Regular rate and rhythm, no murmur, no gallop. RESPIRATORY SYSTEM: Normal AP diameter. No accessory muscle use. No wheezing, no crackles. ABDOMEN: Soft, bowel sounds present. Mild epigastric tenderness. No guarding, no rigidity. CENTRAL NERVOUS SYSTEM: Cranial nerves II-XII grossly intact, nonfocal. EXTREMITIES: No edema, no erythema. Principal Diagnosis Acute pancreatitis Elevated lipase Transaminitis Alcohol Use Hypertension Hypokalemia Discharge Exam General- No acute distress Head- atraumatic Eyes- PERRL, EOMI, ENT- oropharynx clear Neck- supple, no JVD Lungs- clear to auscultation Heart- regular rhythm; no murmur Abdomen- normal bowel sounds, soft, nontender Extremities- no calf tenderness Neuro- alert, oriented x 3; PERRL, EOMI; no facial palsy; no dysarthria Skin- warm & dry Discharge Data Allergies Allergy/AdvReac Type Severity Reaction Status Date / Time naproxen Allergy Loss of Verified 06/08/19 21:44 Appetite Consultations 06/08/19 19:49 ED Decision to Admit Stat 06/09/19 08:00 Consult Gastroenterology Routine Ordered Studies 06/08/19 18:39 CT angio abd pelvis wo/w con Stat CT angio chest dissec wo/w con Stat 06/08/19 19:48 US gallbladder Urgent 06/09/19 09:08 MR MRCP Routine Study: CT angiogram abdomen and pelvis HISTORY: Pain. COMPARISON: None. FINDINGS: Moderate atherosclerotic change of the abdominal aorta as well as pelvic arterial vasculature. Mild scattered plaque formation. No significant stenosis or aneurysm. No evidence for dissection. Liver spleen and pancreas are unremarkable. Nonobstructive bowel pattern. Normal appendix. Bladder is midline. IMPRESSION: 1. Mild atherosclerotic change of the abdominal and pelvic arterial vasculature. 2. No evidence for aneurysm or dissection. 3. Nonobstructive bowel pattern. 4. Normal appendix. 5. Mild to moderate gastric distention Electronically signed by: Hugh Silva M.D. 06/08/2019 7:13 PM Dictated: 06/08/191910 Transcribed: 06/08/191910 CT angio chest dissec wo/w con CT DOSE: 3294.83 mGy.cm HISTORY: Pain epigastric pain TECHNIQUE: Multiaxial CT images of the chest, abdomen, and pelvis were performed both before and after the intravenous administration of contrast to evaluate the aorta. Maximal intensity projection images were also obtained. A dose lowering technique was utilized adhering to the principles of ALARA. COMPARISON STUDY: None. FINDINGS: Generalized atherosclerotic change of the thoracic aorta. No evidence for aneurysm or dissection. Moderate cardiomegaly. No significant mediastinal or hilar adenopathy. Lungs are generally clear. Minimal dependent atelectatic change. IMPRESSION: 1. No evidence for aneurysm or dissection. 2. Lungs are grossly clear. 3. Pulmonary vasculature enhances appropriately with no significant filling defects. The above report was generated using voice recognition software. It may contain grammatical, syntax or spelling errors. Electronically signed by: Hugh Silva M.D. 06/08/2019 7:09 PM Dictated: 06/08/191905 Transcribed: 06/08/191905 XR chest 1V portable CLINICAL HISTORY: epigatric pain pain COMPARISON STUDY: 09/16/2015 FINDINGS: Poor inspiratory volumes. Mild cardiac enlargement. Infiltrate left base. Lungs otherwise appear clear. IMPRESSION: 1. Infiltrate left base. 2. Mild cardiomegaly. The above report was generated using voice recognition software. It may contain grammatical, syntax or spelling errors. Electronically signed by: Hugh Silva M.D. 06/08/2019 6:49 PM Dictated: 06/08/191848 Transcribed: 06/08/191848 ABDOMINAL ULTRASOUND, RIGHT UPPER QUADRANT HISTORY: epigastric pain, elevated LFTs, pancreatitis. COMPARISON: Abdomen and pelvis CT 06/08/2019. FINDINGS: Pancreas: The pancreatic head and tail are obscured by overlying bowel gas. The remaining portions of the pancreas are within normal limits. Liver: The liver is echogenic consistent with fatty change. 17 cm in length. Gallbladder: No gallstones. Mild gallbladder wall thickening measuring 4 mm in thickness. The gallbladder appears slightly contracted. No pericholecystic fluid. Negative sonographic Lopez sign. CBD: 4 mm. Right kidney: No hydronephrosis. IMPRESSION: 1. Mild gallbladder wall thickening. This could be due to the slightly contracted appearance. There are no gallstones. Clinical correlation recommended. 2. Hepatic steatosis. Electronically signed by: Abdirizak Boyce M.D. 06/09/2019 7:12 AM Dictated: 06/09/19 0710 Transcribed: 06/09/19709 MR MRCP HISTORY: pancreatitis, elevated LFTs, r/o biliary obstruction TECHNIQUE: MRCP of the abdomen was performed according to standard departmental protocol without the use of intravenous contrast. COMPARISON STUDY: Abdominal ultrasound 06/08/2019. Abdomen and pelvis CT 06/08/2019. FINDINGS: The lung bases are clear. No hepatic or splenic masses. The adrenal glands and pancreas demonstrate a normal signal intensity. A few small bilateral T2 hyperintense lesions within the kidneys with the largest on the left cindy uring 1 cm. These favor cysts. No retroperitoneal lymphadenopathy. No hydronephrosis. No gallbladder wall thickening. No gallstones. Trace pericholecystic fluid along the hepatic surface is noted. The common bile duct and main pancreatic duct are normal in course and caliber. No filling defects within the common bile duct to suggest a stone. No intrahepatic bile duct dilatation. IMPRESSION: 1. Trace pericholecystic fluid along the hepatic surface. This favors underlying hepatic abnormality and could be seen with a low-grade hepatitis. Clinical correlation recommended. 2. No gallbladder wall thickening. No gallstones. 3. Normal common bile duct. Electronically signed by: Abdirizak Boyce M.D. 06/09/2019 2:29 PM Dictated: 06/09/19 1423 Transcribed: 06/09/19 1423 Hospital Course (1) Acute pancreatitis: suspected acute pancreatitis elevated lipase Transaminitis Alcohol Use 63-year-old male who presents with abdominal pain, and because of elevated lipase of 28,000, he was suspected of having acute pancreatitis -He denies tobacco, drinks up to 15 beers a week. He denies any illicit drugs. Denies new meds in last 3 months No family hx of autoimmune dz or pancreatitis. -admission CT scan imaging does not comment on an acute pancreas pathology -gallbladder ultrasound with no acute features: Mild gallbladder wall thickening. This could be due to the slightly contracted appearance. There are no gallstones. Hepatic steatosis. -lipase downtrended to 6000 with IV fluids of lactated ringers -gastroenterology service recommended to continue IV fluids and check Check acute hepatitis panel and obtain MRCP -Liver enzymes trending down - Patient may get Clear liquid diet after MRCP obtained. - Symptomatic management for pain/nausea control otherwise - plan for outpatient EUS eval in 4-6 week's time - Avoid ETOH, stay on low fat diet - Check LFT in 1 week (2) Hypokalemia: Serum potassium 2.7 K is 3.5 today Advised pt increased K supplement on diet Hypertension Continue his home medications, benazepril/hydrochlorothiazide and Toprol xl Stable Hyperlipidemia Continue statin. Sleep apnea, and on CPAP at night CPAP at bedtime. Abnormal Chest X ray Chest x-ray shows left base infiltrate, but there is no cough, no fever, currently, no leukocytosis. CT chest showed clear lung Deep venous thrombosis prophylaxis, sequential compression devices. Full code Total Time Total Time Spent Total Time Spent (In Minutes): 35 minutes Total Time Includes: Examination of the Patient, Discharge Planning, Medication Reconciliation, Communication With Other Providers and Other Discharge Plan Discharge Items Patient Disposition: Home - Self-Care Reason For Visit: ABDOMINAL PAIN Discharge Diagnosis: Acute pancreatitis Activity: Resume your previous activity Activity Comment: As tolerated Non-emergency contact: Primary Care Provider Call non-emergency contact if: you have any medication questions Follow-up/Referrals: Abilio Marr MD [Primary Care Provider] - Diet: Low Fat Addtl Attending Provider Instructions: Follow up with your primary care provider within 1 week Counseling on alcohol cessation Follow a low fat diet and advanced as tolerated Check CMP in 1 week to monitor liver enzymes and electrolytes (Your physician will order it) You will need outpatient EUS in 4-6 week (Gastroenterology will arrange it) Pending Studies at Discharge: No Stand-Alone Forms: Call Back Authorization, My [facility], Smoking Cessation Medications and DC Order Prescriptions: Continued atorvastatin 40 mg Tablet 40 mg PO HS RF: 0 metoprolol succinate 100 mg Tablet Extended Release 24 Hr 100 mg PO HS RF: 0 benazepril-hydrochlorothiazide 20-25 mg Tablet 1 tab PO DAILY RF: 0 Discharge Orders: Discharge Order (Routine); Ordered 06/10/19 Ordered By: Jonathan Quinones Admission Data Admit Date/Time: 06/08/19 20:25 Attending Provider: Jonathan Quinones Admit Provider: Imtiaz Lin Primary Care Provider: Abilio Marr Other Providers: Imtiaz Lin ; Vincenzo Herrera ; La Nam ; Alisha Washburn ; Nancy Andrade ; Kamron Mccabe ; Letty Goode ; Jorge A Gabriel ; Jenniffer Tavarez ; Shailesh Wan ; Wai Vo ; Lachelle Hercules ; Nicole Farnsworth ; Carolyn Castellanos ; Dori Green ; Eloisa Nobles ; Nico James
[2019-06-10] MEDS ORDERED: ATORVASTATIN 40 MG TAB PO SCH (21:00)
== END 2019-06-10 19:19 | disposition home or self-care (01) | DRG 440 ==
LOC: ED 18:24 → 3N 20:25 → SUATTDRO 20:25 → 3N 21:02